=== PATIENT | male | born 1975 | race Two or more races ===

== ENCOUNTER 2021-04-27 21:47 | Emergency (ER) | payer SELFPAY ==
[~2021-04-27] VITALS: Ht 182.9 cm; Wt 90.9 kg
--- NOTE | 2021-04-27 21:59 | NUR ---
Pt to CT
--- NOTE | 2021-04-27 22:00 | NUR ---
PT WILL BE ROOMED IN BED [address] PRIMARY RN, FRANCIS, IS AWARE OF PT.
[2021-04-27 22:09] LABS: BASOPHILS # (AUTO) 0.1 X10'3 (0-0.2); BASOPHILS % (AUTO) 1.3 % (0-1); EOSINOPHILS # (AUTO) 0.2 X10'3 (0-0.9); EOSINOPHILS % (AUTO) 3.5 % (0-6); HEMATOCRIT 38.1 % (42.0-52.0); HEMOGLOBIN 13.1 g/dl (14.0-17.9); LYMPHOCYTES # (AUTO) 1.5 X10'3 (1.1-4.8); LYMPHOCYTES % (AUTO) 29.3 % (21-51); MEAN CORPUSCULAR HEMOGLOBIN 35.8 PG (27.0-31.0); MEAN CORPUSCULAR HGB CONC 34.5 g/dL (33.0-36.5); MEAN CORPUSCULAR VOLUME 103.8 FL (78-98); MEAN PLATELET VOLUME 9.5 FL (7.4-10.4); MONOCYTES # (AUTO) 0.6 X10'3 (0-0.9); MONOCYTES % (AUTO) 11.6 % (2-12); NEUTROPHILS # (AUTO) 2.7 X10'3 (1.8-7.7); NEUTROPHILS % (AUTO) 54.3 % (42-75); PLATELET COUNT 67 X10'3 (140-440); RED BLOOD COUNT 3.67 X10'6 (4.70-6.10); RED CELL DISTRIBUTION WIDTH 14.4 % (11.5-14.5); WHITE BLOOD COUNT 5.1 X10'3 (4.5-11.0)
[2021-04-27] MEDS ORDERED: niCARDipine-NS 40mg/200ml IVPB 200 ML IV SCH (22:10)
[2021-04-27 22:17] LABS: APTT 33 SECONDS (22-32)
[2021-04-27 22:19] LABS: ALANINE AMINOTRANSFERASE 47 U/L (12-78); ALBUMIN 2.7 G/DL (3.4-5.0); ALBUMIN/GLOBULIN RATIO 0.6 (1.1-1.5); ALKALINE PHOSPHATASE 178 IU/L (46-116); ANION GAP 11 (8-16); ASPARTATE AMINO TRANSFERASE 70 U/L (10-37); BILIRUBIN,TOTAL 1.5 MG/DL (0.1-1.0); BLOOD UREA NITROGEN 6 MG/DL (7-18); CHLORIDE 103 MMOL/L (99-107); CREATININE 0.75 MG/DL (0.60-1.10); POTASSIUM 3.6 MMOL/L (3.5-5.1); SODIUM 137 MMOL/L (135-145); TOTAL CARBON DIOXIDE 23.5 MMOL/L (24-32); TOTAL PROTEIN 7.6 G/DL (6.4-8.2); eGFR > 90 ML/MIN
[2021-04-27 22:22] LABS: GLUCOSE 163 MG/DL (70-104)
[2021-04-27 23:01] VITALS: BP 131/84
== END 2021-04-27 23:07 | disposition short-term general hospital (02) ==
LOC: ER 21:47
DX: I62.9 Nontraumatic intracranial hemorrhage, unspecified (principal); Z20.822 Contact with and (suspected) exposure to COVID-19; I61.8 Other nontraumatic intracerebral hemorrhage; R91.8 Other nonspecific abnormal finding of lung field; R47.81 Slurred speech; I10 Essential (primary) hypertension
CPT/HCPCS: 36415; 70450; 71045; 80053; 84484; 85025; 85610; 85730; 87635; 93005; 96365; 99291; C9803; J3490